=== PATIENT | female | born 1955 | race Caucasian/White ===

== ENCOUNTER 2017-04-01 08:50 | Outpatient (CLI) | payer MEDICAID | END 2017-04-01 11:11 | LOC: D.MAMMO 08:50 | DX: Z12.31 Encounter for screening mammogram for malignant neoplasm of breast (principal) ==

== ENCOUNTER → 2018-11-08 13:45 | Outpatient (CLI) | payer MEDICAID | END | disposition home or self-care (01) | LOC: D.RT 13:45 | PROVIDERS: ATTEND Pediatrics | DX: Z02.71 Encounter for disability determination (principal) ==